=== PATIENT | male | born 1955 | race Two or more races ===

== ENCOUNTER 2021-02-20 08:58 | Inpatient (IN) | payer MEDICARE, MEDICAID ==
[~2021-02-20] VITALS: Ht 172.7 cm; Wt 58.1 kg
[2021-02-20] VITALS (28 sets, daily range): BP systolic 78–146; BP diastolic 46–117
[~2021-02-20 08:58] MED LIST: CEPH500T MT; ETOMIDATE 2MG/ML 10ML VIAL IV ONE; MIDO5TAB4 MT; SUCCINYLCHOLINE CHLORIDE 200MG/10ML IV ONE
[2021-02-20] MEDS ORDERED: SODIUM CHLORIDE 0.9% 1,000 ML IV ONE (09:30)
[2021-02-20 09:41] LABS: HEMATOCRIT. 31.5 % (42.0-52.0); HEMOGLOBIN. 11.1 g/dL (14.0-18.0); MEAN CORPUSCULAR HEMOGLOBIN 37.9 pg (28.0-32.0); MEAN CORPUSCULAR VOLUME 107.1 fL (80.0-94.0); MEAN PLATELET VOLUME 7.8 fl (7.4-10.4); PLATELET 206 x1000/uL (130-400); RED BLOOD CELL COUNT 2.95 mill/uL (4.7-6.1); RED CELL DISTRIBUTION WIDTH 15.3 % (11.6-14.6)
[2021-02-20 09:50] LABS: PROTHROMBIN TIME 11.2 sec (9.6-11.0)
[2021-02-20 09:50] LABS: BG BASE EXCESS -27.9 mmol/L (-2.0-2.0); BG CARBOXYHEMOGLOBIN 0.3 % (0.5-1.5); BG DEOXYHEMOGLOBIN 1.6 % (0.0-5.0); BG FRACTION INSPIRED OXYGEN 28; BG HCO3 ACT 2.1 mmol/L (22.0-26.0); BG METHEMOGLOBIN 0.3 % (0.0-1.5); BG OXYGEN SATURATION 98.4 % (92.0-98.5); BG OXYHEMOGLOBIN 97.8 % (94.0-97.0); BG PCO2 9.3 mmHg (35.0-45.0); BG PH 6.967 (7.350-7.450); BG PO2 149.1 mmHg (75.0-100.0); BG SAMPLE SITE RIGHT RADIAL; BG TOTAL HEMOGLOBIN 11.9 g/dL (12.0-18.0); BG VENT MODE NASAL CANNULA
[2021-02-20 09:51] LABS: CHLORIDE 117 mEq/L (98-107)
[2021-02-20 09:59] LABS: CREATINE KINASE 239 IU/L (39-308)
[2021-02-20] MEDS ORDERED: SODIUM CHLORIDE 0.9% 1000ML BAG (SEPSIS BOLUS) IV ONE (10:00)
[2021-02-20] MEDS ORDERED: PIPERACILLIN/TAZ 3.375G PREMIX 50 ML IV ONE (10:00)
[2021-02-20] MEDS ORDERED: VANCOMYCIN 1 G PREMIX 200 ML IV ONE (10:00)
[2021-02-20] MEDS ORDERED: SODIUM BICARBONATE 8.4% 1 MEQ/ML 50ML SYR IV ONE ×2 (10:00→11:15)
[2021-02-20] MEDS ORDERED: KCL 20MEQ/100ML PREMIX 100 ML IV ONE (10:15)
[2021-02-20 10:25] LABS: PLATELET ESTIMATE NORMAL
[2021-02-20 11:24] LABS: PHOSPHORUS 7.3 mg/dL (2.5-4.9)
[2021-02-20 11:29] LABS: BETA HYDROXYBUTYRATE 3.5 mMol/L (0.0-0.3)
[2021-02-20 11:58] LABS: CLARITY URINE TURBID (CLEAR); COLOR URINE DARK YELLOW (YELLOW); KETONES URINE TRACE (NEGATIVE); LEUKOCYTE ESTERASE URINE 3+ (NEGATIVE); NITRITE URINE NEGATIVE (NEGATIVE); OCCULT BLOOD URINE 3+ (NEGATIVE); PH URINE 7.5 (4.5-8.0); PROTEIN URINE 3+ (NEGATIVE); SPECIFIC GRAVITY URINE 1.016 (1.005-1.030)
[2021-02-20] MEDS ORDERED: IPRATROPIUM/ALBUTEROL 0.5-3(2.5)MG/3ML NEB HHN PRN (12:00)
[2021-02-20] MEDS ORDERED: PIPERACILLIN/TAZOBACTAM 3.375 G in DEXTROSE 5% WATER 50 ML IV SCH ×2 (12:00→14:00)
[2021-02-20] MEDS ORDERED: DEXTROSE 5% WATER 1,000 ML IV SCH (12:00)
[2021-02-20] MEDS: SODIUM BICARBONATE 150 MEQ in SODIUM CHLORIDE 0.45% 1,000 ML IV SCH (12:16)
[2021-02-20] MEDS ORDERED: NOREPINEPHRINE 32 MG in DEXT 5% WATER 218 ML IV PRN (12:30)
[2021-02-20] MEDS: PROPOFOL 10MG/ML 100ML 100 ML IV PRN (12:52)
[2021-02-20] MEDS ORDERED: SODIUM BICARBONATE 150 MEQ in DEXTROSE 5% WATER 1,000 ML IV SCH (13:00)
[2021-02-20 13:40] LABS: BG CARBOXYHEMOGLOBIN 0.1 % (0.5-1.5); BG FRACTION INSPIRED OXYGEN 100; BG HCO3 ACT 4.4 mmol/L (22.0-26.0); BG METHEMOGLOBIN 0.1 % (0.0-1.5); BG OXYHEMOGLOBIN 98.8 % (94.0-97.0); BG PCO2 17.7 mmHg (35.0-45.0); BG PH 7.011 (7.350-7.450); BG SAMPLE SITE LEFT BRACHIAL; BG TOTAL HEMOGLOBIN 10.9 g/dL (12.0-18.0); BG VENT MODE VENT - AC
[2021-02-20] MEDS ORDERED: POTASSIUM CHLORIDE INJ 40 MEQ in DEXT 5% WATER 250 ML IV NR ×3 (14:00→22:00)
[2021-02-20] MEDS ORDERED: SODIUM BICARBONATE 8.4% 1 MEQ/ML 50ML SYR IV NR (15:00)
[2021-02-20] MEDS ORDERED: POTASSIUM CHLORIDE 20MEQ TABLET SR PO NR (16:00)
[2021-02-20] MEDS ORDERED: POTASSIUM CHLORIDE 20MEQ TABLET SR PO ONE (16:00)
[2021-02-20] MEDS ORDERED: POTASSIUM CHLORIDE INJ 40 MEQ in DEXT 5% WATER 250 ML IV ONE (16:00)
[2021-02-20] MEDS ORDERED: NOREPINEPHRINE 8MG/250ML PMX 250 ML IV PRN (20:00)
[2021-02-20] MEDS: IPRATROPIUM/ALBUTEROL 0.5-3(2.5)MG/3ML NEB HHN SCH (20:12)
[2021-02-20] MEDS: NOREPINEPHRINE 8 MG in DEXTROSE 5% WATER 250 ML IV PRN (21:35)
[2021-02-20] MEDS: POTASSIUM CHLORIDE INJ 40 MEQ in DEXTROSE 5% WATER 1,000 ML IV SCH (21:54)
[2021-02-20] MEDS: PIPERACILLIN/TAZOBACTAM 3.375 G in DEXTROSE 5% WATER 50 ML IV SCH (22:06)
[2021-02-21] VITALS (102 sets, daily range): BP systolic 54–146; BP diastolic 29–95
[2021-02-21] MEDS: PROPOFOL 10MG/ML 100ML 100 ML IV PRN ×2 (01:22→12:15)
[2021-02-21] MEDS: IPRATROPIUM/ALBUTEROL 0.5-3(2.5)MG/3ML NEB HHN SCH ×4 (02:09→19:48)
[2021-02-21] MEDS: KCL 20MEQ/100ML PREMIX 100 ML IV NR ×2 (02:13→04:54)
[2021-02-21] MEDS ORDERED: POTASSIUM CHLORIDE 20MEQ/PACKET PO NR (02:30)
[2021-02-21] MEDS: NOREPINEPHRINE 8 MG in DEXTROSE 5% WATER 250 ML IV PRN ×3 (03:53→12:05)
[2021-02-21] MEDS: SODIUM BICARBONATE 150 MEQ in SODIUM CHLORIDE 0.45% 1,000 ML IV SCH (04:02)
[2021-02-21 07:53] LABS: BG BASE EXCESS -8.7 mmol/L (-2.0-2.0); BG CARBOXYHEMOGLOBIN 0.1 % (0.5-1.5); BG DEOXYHEMOGLOBIN 1.4 % (0.0-5.0); BG HCO3 ACT 13.5 mmol/L (22.0-26.0); BG METHEMOGLOBIN 0.3 % (0.0-1.5); BG OXYGEN SATURATION 98.6 % (92.0-98.5); BG OXYHEMOGLOBIN 98.2 % (94.0-97.0); BG PCO2 19.8 mmHg (35.0-45.0); BG PH 7.453 (7.350-7.450); BG PO2 228.7 mmHg (75.0-100.0); BG SAMPLE SITE RIGHT RADIAL; BG TOTAL HEMOGLOBIN 9.9 g/dL (12.0-18.0); BG VENT MODE VENT - AC
[2021-02-21 08:06] LABS: HEMATOCRIT. 27.4 % (42.0-52.0); HEMOGLOBIN. 9.6 g/dL (14.0-18.0); MEAN CORPUSCULAR HEMOGLOBIN 36.8 pg (28.0-32.0); MEAN CORPUSCULAR VOLUME 104.8 fL (80.0-94.0); MEAN PLATELET VOLUME 8.9 fl (7.4-10.4); PLATELET 151 x1000/uL (130-400); RED BLOOD CELL COUNT 2.62 mill/uL (4.7-6.1); RED CELL DISTRIBUTION WIDTH 15.2 % (11.6-14.6)
[2021-02-21] MEDS: POTASSIUM CHLORIDE 20MEQ/PACKET PO SCH (08:54)
[2021-02-21] MEDS: PIPERACILLIN/TAZOBACTAM 3.375 G in DEXTROSE 5% WATER 50 ML IV SCH ×2 (08:54→20:44)
[2021-02-21] MEDS: PANTOPRAZOLE SODIUM 40 MG/VIAL IV SCH (08:54)
[2021-02-21] MEDS: CITRIC ACID/SODIUM CITRATE SOLN 30ML UDC PO SCH ×3 (08:54→17:55)
[2021-02-21] MEDS: POTASSIUM CHLORIDE INJ 40 MEQ in DEXT 5% WATER 250 ML IV NR ×2 (08:54→14:00)
[2021-02-21 11:08] LABS: PLATELET ESTIMATE NORMAL
[2021-02-21] MEDS: MIDODRINE HCL 5MG TABLET PO SCH ×3 (11:10→17:55)
[2021-02-21] MEDS: NOREPINEPHRINE 32 MG in DEXT 5% WATER 218 ML IV PRN (17:53)
[2021-02-21] MEDS ORDERED: PROPOFOL 10MG/ML 100ML 100 ML IV PRN (18:15)
[2021-02-21] MEDS: POTASSIUM CHLORIDE INJ 40 MEQ in DEXTROSE 5% WATER 1,000 ML IV SCH (20:15)
[2021-02-21] MEDS: DOPAMINE 400MG/250ML PREMIX 250 ML IV PRN (20:55)
[2021-02-21] MEDS ORDERED: PHENYLEPHRINE 50 MG in DEXT 5% WATER 245 ML IV PRN (21:45)
[2021-02-21] MEDS ORDERED: POTASSIUM CHLORIDE INJ 40 MEQ in DEXT 5% WATER 250 ML IV NR (23:00)
[2021-02-22] VITALS (97 sets, daily range): BP systolic 70–160; BP diastolic 40–121
[2021-02-22] MEDS: IPRATROPIUM/ALBUTEROL 0.5-3(2.5)MG/3ML NEB HHN SCH ×4 (01:39→20:10)
[2021-02-22] MEDS: NOREPINEPHRINE 32 MG in DEXT 5% WATER 218 ML IV PRN ×2 (03:51→18:54)
[2021-02-22 05:51] LABS: BASOPHILS % 0.2 % (0.0-2.0); EOSINOPHILS % 0.1 % (0.0-5.0); HEMATOCRIT. 25.9 % (42.0-52.0); LYMPHOCYTES % 7.8 % (20.0-50.0); MEAN CORPUSCULAR HEMOGLOBIN 36.8 pg (28.0-32.0); MEAN CORPUSCULAR VOLUME 105.5 fL (80.0-94.0); MEAN PLATELET VOLUME 9.4 fl (7.4-10.4); MONOCYTES % 6.8 % (2.0-8.0); NEUTROPHILS % 85.1 % (40.0-76.0); PLATELET 124 x1000/uL (130-400); RED BLOOD CELL COUNT 2.45 mill/uL (4.7-6.1); RED CELL DISTRIBUTION WIDTH 15.2 % (11.6-14.6)
[2021-02-22 06:08] LABS: PHOSPHORUS 1.6 mg/dL (2.5-4.9)
[2021-02-22] MEDS: POTASSIUM CHLORIDE 20MEQ/PACKET PO SCH (08:39)
[2021-02-22] MEDS: CITRIC ACID/SODIUM CITRATE SOLN 30ML UDC PO SCH ×3 (08:39→17:10)
[2021-02-22] MEDS: SODIUM BICARBONATE 100 MEQ in SODIUM CHLORIDE 0.45% 1,000 ML IV SCH (08:40)
[2021-02-22] MEDS: PANTOPRAZOLE SODIUM 40 MG/VIAL IV SCH (08:40)
[2021-02-22] MEDS: MIDODRINE HCL 5MG TABLET PO SCH ×3 (08:40→17:10)
[2021-02-22] MEDS ORDERED: SODIUM PHOS,M-BASIC-D-BASIC 15 MM in DEXT 5% WATER 245 ML IV SCH (09:00)
[2021-02-22 09:05] LABS: BG CARBOXYHEMOGLOBIN 0.3 % (0.5-1.5); BG DEOXYHEMOGLOBIN 1.1 % (0.0-5.0); BG FRACTION INSPIRED OXYGEN 35; BG HCO3 ACT 11.3 mmol/L (22.0-26.0); BG METHEMOGLOBIN 0.4 % (0.0-1.5); BG OXYGEN SATURATION 98.9 % (92.0-98.5); BG OXYHEMOGLOBIN 98.2 % (94.0-97.0); BG PCO2 21.5 mmHg (35.0-45.0); BG PH 7.338 (7.350-7.450); BG PO2 208.3 mmHg (75.0-100.0); BG SAMPLE SITE RIGHT BRACHIAL; BG TOTAL HEMOGLOBIN 8.7 g/dL (12.0-18.0); BG TOTAL RESPIRATORY RATE 27 b/min; BG VENT MODE VENT - AC
[2021-02-22] MEDS: PIPERACILLIN/TAZOBACTAM 3.375 G in DEXTROSE 5% WATER 50 ML IV SCH ×2 (09:36→20:12)
[2021-02-22] MEDS: THIAMINE HCL 100MG TABLET PO SCH (09:39)
[2021-02-22] MEDS: FOLIC ACID 1MG TABLET PO SCH (09:39)
[2021-02-22] MEDS: FOLIC ACID/VITAMIN B COMP W-C TABLET PO SCH (09:39)
[2021-02-22] MEDS ORDERED: DEXTROSE 50% WATER 50ML SYRINGE IV PRN ×2 (11:15)
[2021-02-22] MEDS: BLOOD SUGAR DIAGNOSTIC STRIP TEST SCH ×3 (12:07→20:30)
[2021-02-22] MEDS: INSULIN LISPRO 100 UNITS/ML SUBCUT SCH ×3 (12:14→23:44)
[2021-02-22] MEDS: LACTOBACILLUS GG CAPSULE PO SCH (13:14)
[2021-02-22 16:58] LABS: *AMPHETAMINES SCREEN URINE NEGATIVE (NEGATIVE); *BARBITURATES SCREEN URINE NEGATIVE (NEGATIVE); *BENZODIAZEPINES SCREEN URINE NEGATIVE (NEGATIVE); *COCAINE SCREEN URINE NEGATIVE (NEGATIVE)
[2021-02-22 16:59] LABS: CANNABINOID URINE SCREEN NEGATIVE (NEGATIVE); METHADONE URINE SCREEN NEGATIVE (NEGATIVE); OPIATES URINE SCREEN NEGATIVE (NEGATIVE); PHENCYCLIDINE URINE SCREEN NEGATIVE (NEGATIVE)
[2021-02-22] MEDS ORDERED: PROPOFOL 10MG/ML 100ML 100 ML IV PRN (18:16)
[2021-02-23] VITALS (97 sets, daily range): BP systolic 76–132; BP diastolic 50–99
[2021-02-23] MEDS: IPRATROPIUM/ALBUTEROL 0.5-3(2.5)MG/3ML NEB HHN SCH ×4 (01:34→19:45)
[2021-02-23] MEDS: SODIUM BICARBONATE 100 MEQ in SODIUM CHLORIDE 0.45% 1,000 ML IV SCH ×2 (03:55→21:51)
[2021-02-23] MEDS: INSULIN LISPRO 100 UNITS/ML SUBCUT SCH ×4 (06:00→23:36)
[2021-02-23 06:02] LABS: BASOPHILS % 0.2 % (0.0-2.0); EOSINOPHILS % 0.3 % (0.0-5.0); HEMATOCRIT. 22.7 % (42.0-52.0); HEMOGLOBIN. 8.2 g/dL (14.0-18.0); INR 1.2; LYMPHOCYTES % 14.6 % (20.0-50.0); MEAN CORPUSCULAR HEMOGLOBIN 37.3 pg (28.0-32.0); MEAN CORPUSCULAR VOLUME 103.9 fL (80.0-94.0); MONOCYTES % 6.3 % (2.0-8.0); NEUTROPHILS % 78.6 % (40.0-76.0); PLATELET 102 x1000/uL (130-400); PROTHROMBIN TIME 12.4 sec (9.6-11.0); RED BLOOD CELL COUNT 2.19 mill/uL (4.7-6.1); RED CELL DISTRIBUTION WIDTH 15.4 % (11.6-14.6)
[2021-02-23] MEDS: BLOOD SUGAR DIAGNOSTIC STRIP TEST SCH ×5 (06:07→23:36)
[2021-02-23] MEDS: NOREPINEPHRINE 32 MG in DEXT 5% WATER 218 ML IV PRN ×2 (06:14→23:04)
[2021-02-23 06:22] LABS: FERRITIN 1386 ng/mL (22-322)
[2021-02-23 06:23] LABS: FOLIC ACID (FOLATE) SERUM >20 ng/mL ng/mL (>5.38)
[2021-02-23 06:34] LABS: VITAMIN B12 SERUM 1662 pg/mL (211-911)
[2021-02-23] MEDS: LACTOBACILLUS GG CAPSULE PO SCH (08:22)
[2021-02-23] MEDS: MIDODRINE HCL 5MG TABLET PO SCH ×3 (08:22→17:06)
[2021-02-23] MEDS: FOLIC ACID 1MG TABLET PO SCH (08:22)
[2021-02-23] MEDS: PANTOPRAZOLE SODIUM 40 MG/VIAL IV SCH (08:22)
[2021-02-23] MEDS: PIPERACILLIN/TAZOBACTAM 3.375 G in DEXTROSE 5% WATER 50 ML IV SCH ×2 (08:22→20:40)
[2021-02-23] MEDS: THIAMINE HCL 100MG TABLET PO SCH (08:22)
[2021-02-23] MEDS: POTASSIUM CHLORIDE 20MEQ/PACKET PO SCH (08:22)
[2021-02-23] MEDS: CITRIC ACID/SODIUM CITRATE SOLN 30ML UDC PO SCH ×3 (08:22→17:06)
[2021-02-23] MEDS: FOLIC ACID/VITAMIN B COMP W-C TABLET PO SCH (08:23)
[2021-02-23 09:14] LABS: BG BASE EXCESS -5.8 mmol/L (-2.0-2.0); BG CARBOXYHEMOGLOBIN 0.3 % (0.5-1.5); BG DEOXYHEMOGLOBIN 1.3 % (0.0-5.0); BG FRACTION INSPIRED OXYGEN 35; BG HCO3 ACT 16.9 mmol/L (22.0-26.0); BG METHEMOGLOBIN 0.6 % (0.0-1.5); BG OXYGEN SATURATION 98.7 % (92.0-98.5); BG OXYHEMOGLOBIN 97.8 % (94.0-97.0); BG PCO2 23.5 mmHg (35.0-45.0); BG PH 7.474 (7.350-7.450); BG PO2 183.5 mmHg (75.0-100.0); BG TOTAL RESPIRATORY RATE 25 b/min; BG VENT MODE VENT - AC
[2021-02-23] MEDS: PROPOFOL 10MG/ML 100ML 100 ML IV PRN (21:41)
[2021-02-24] VITALS (93 sets, daily range): BP systolic 89–144; BP diastolic 43–100
[2021-02-24] MEDS: IPRATROPIUM/ALBUTEROL 0.5-3(2.5)MG/3ML NEB HHN SCH ×4 (00:32→21:02)
[2021-02-24 05:26] LABS: BASOPHILS % 0.2 % (0.0-2.0); EOSINOPHILS % 1.3 % (0.0-5.0); HEMATOCRIT. 23.5 % (42.0-52.0); HEMOGLOBIN. 8.6 g/dL (14.0-18.0); LYMPHOCYTES % 18.4 % (20.0-50.0); MEAN CORPUSCULAR HEMOGLOBIN 38.4 pg (28.0-32.0); MEAN CORPUSCULAR VOLUME 105.3 fL (80.0-94.0); MEAN PLATELET VOLUME 10.6 fl (7.4-10.4); MONOCYTES % 4.2 % (2.0-8.0); NEUTROPHILS % 75.9 % (40.0-76.0); PLATELET 98 x1000/uL (130-400); RED BLOOD CELL COUNT 2.23 mill/uL (4.7-6.1); RED CELL DISTRIBUTION WIDTH 15.3 % (11.6-14.6)
[2021-02-24] MEDS: BLOOD SUGAR DIAGNOSTIC STRIP TEST SCH ×4 (05:52→23:24)
[2021-02-24] MEDS: INSULIN LISPRO 100 UNITS/ML SUBCUT SCH ×4 (05:55→23:25)
[2021-02-24] MEDS: PROPOFOL 10MG/ML 100ML 100 ML IV PRN (06:49)
[2021-02-24] MEDS: THIAMINE HCL 100MG TABLET PO SCH (08:21)
[2021-02-24] MEDS: PIPERACILLIN/TAZOBACTAM 3.375 G in DEXTROSE 5% WATER 50 ML IV SCH ×2 (08:21→20:43)
[2021-02-24] MEDS: FOLIC ACID 1MG TABLET PO SCH (08:21)
[2021-02-24] MEDS: PANTOPRAZOLE SODIUM 40 MG/VIAL IV SCH (08:21)
[2021-02-24] MEDS: CITRIC ACID/SODIUM CITRATE SOLN 30ML UDC PO SCH ×3 (08:21→17:33)
[2021-02-24] MEDS: FOLIC ACID/VITAMIN B COMP W-C TABLET PO SCH (08:21)
[2021-02-24] MEDS: LACTOBACILLUS GG CAPSULE PO SCH (08:21)
[2021-02-24] MEDS: MIDODRINE HCL 5MG TABLET PO SCH ×3 (08:21→17:32)
[2021-02-24 09:41] LABS: BG BASE EXCESS 0.8 mmol/L (-2.0-2.0); BG CARBOXYHEMOGLOBIN 0.2 % (0.5-1.5); BG DEOXYHEMOGLOBIN 1.4 % (0.0-5.0); BG FRACTION INSPIRED OXYGEN 35; BG HCO3 ACT 23.5 mmol/L (22.0-26.0); BG METHEMOGLOBIN 0.3 % (0.0-1.5); BG OXYGEN SATURATION 98.6 % (92.0-98.5); BG OXYHEMOGLOBIN 98.1 % (94.0-97.0); BG PCO2 29.9 mmHg (35.0-45.0); BG PH 7.513 (7.350-7.450); BG PO2 179.1 mmHg (75.0-100.0); BG SAMPLE SITE RIGHT RADIAL; BG TOTAL HEMOGLOBIN 8.6 g/dL (12.0-18.0); BG TOTAL RESPIRATORY RATE 18 b/min; BG VENT MODE VENT - AC
[2021-02-24] MEDS: POTASSIUM CHLORIDE 20MEQ/PACKET PO SCH ×2 (10:08→17:33)
[2021-02-24] MEDS: LINEZOLID 600 MG PREMIX 300 ML IV SCH ×2 (10:34→22:36)
[2021-02-24] MEDS: SODIUM CHLORIDE 0.45% 1,000 ML IV SCH (10:35)
[2021-02-24] MEDS: NOREPINEPHRINE 32 MG in DEXT 5% WATER 218 ML IV PRN (23:51)
[2021-02-25] VITALS (95 sets, daily range): BP systolic 83–133; BP diastolic 32–108
[2021-02-25] MEDS: SODIUM CHLORIDE 0.45% 1,000 ML IV SCH (01:00)
[2021-02-25] MEDS: IPRATROPIUM/ALBUTEROL 0.5-3(2.5)MG/3ML NEB HHN SCH ×4 (04:15→19:51)
[2021-02-25] MEDS: PROPOFOL 10MG/ML 100ML 100 ML IV PRN ×2 (04:33→23:50)
[2021-02-25] MEDS: INSULIN LISPRO 100 UNITS/ML SUBCUT SCH ×4 (06:00→23:48)
[2021-02-25 06:06] LABS: HEMATOCRIT. 25.7 % (42.0-52.0); HEMOGLOBIN. 8.9 g/dL (14.0-18.0); MEAN CORPUSCULAR VOLUME 107.2 fL (80.0-94.0); MEAN PLATELET VOLUME 10.8 fl (7.4-10.4); PLATELET 103 x1000/uL (130-400); RED BLOOD CELL COUNT 2.39 mill/uL (4.7-6.1); RED CELL DISTRIBUTION WIDTH 15.8 % (11.6-14.6)
[2021-02-25 06:18] LABS: PHOSPHORUS 3.1 mg/dL (2.5-4.9)
[2021-02-25] MEDS: BLOOD SUGAR DIAGNOSTIC STRIP TEST SCH ×4 (06:26→23:37)
[2021-02-25] MEDS ORDERED: DOBUTAMINE 250MG PREMIX 250 ML IV SCH (08:30)
[2021-02-25] MEDS: MIDODRINE HCL 5MG TABLET PO SCH ×3 (08:41→18:18)
[2021-02-25] MEDS: FOLIC ACID/VITAMIN B COMP W-C TABLET PO SCH (08:41)
[2021-02-25] MEDS: THIAMINE HCL 100MG TABLET PO SCH (08:41)
[2021-02-25] MEDS: CITRIC ACID/SODIUM CITRATE SOLN 30ML UDC PO SCH ×3 (08:41→18:18)
[2021-02-25] MEDS: PANTOPRAZOLE SODIUM 40 MG/VIAL IV SCH (08:41)
[2021-02-25] MEDS: FOLIC ACID 1MG TABLET PO SCH (08:42)
[2021-02-25] MEDS: LACTOBACILLUS GG CAPSULE PO SCH (08:43)
[2021-02-25] MEDS: PIPERACILLIN/TAZOBACTAM 3.375 G in DEXTROSE 5% WATER 50 ML IV SCH ×2 (08:44→20:54)
[2021-02-25 10:01] LABS: BG BASE EXCESS -3.4 mmol/L (-2.0-2.0); BG CARBOXYHEMOGLOBIN 0.3 % (0.5-1.5); BG DEOXYHEMOGLOBIN 3.9 % (0.0-5.0); BG FRACTION INSPIRED OXYGEN 35; BG HCO3 ACT 19.1 mmol/L (22.0-26.0); BG METHEMOGLOBIN 0.3 % (0.0-1.5); BG OXYGEN SATURATION 96.1 % (92.0-98.5); BG OXYHEMOGLOBIN 95.5 % (94.0-97.0); BG PCO2 26.3 mmHg (35.0-45.0); BG PO2 85.3 mmHg (75.0-100.0); BG SAMPLE SITE RIGHT RADIAL; BG TOTAL HEMOGLOBIN 9.7 g/dL (12.0-18.0); BG VENT MODE VENT - AC
[2021-02-25 10:36] LABS: NUCLEATED RED BLOOD CELLS 39 /100 WBC
[2021-02-25 10:37] LABS: PLATELET ESTIMATE DECREASED
[2021-02-25] MEDS: LINEZOLID 600 MG PREMIX 300 ML IV SCH (10:55)
[2021-02-25] MEDS ORDERED: LINEZOLID 600 MG PREMIX 300 ML IV SCH (13:00)
[2021-02-26] VITALS (91 sets, daily range): BP systolic 82–125; BP diastolic 41–84
[2021-02-26] MEDS: LINEZOLID 600 MG PREMIX 300 ML IV SCH ×2 (00:34→12:26)
[2021-02-26] MEDS: IPRATROPIUM/ALBUTEROL 0.5-3(2.5)MG/3ML NEB HHN SCH ×4 (03:38→19:48)
[2021-02-26 05:07] LABS: BASOPHILS % 0.1 % (0.0-2.0); EOSINOPHILS % 0.3 % (0.0-5.0); HEMATOCRIT. 24.1 % (42.0-52.0); LYMPHOCYTES % 10.6 % (20.0-50.0); MEAN CORPUSCULAR HEMOGLOBIN 37.1 pg (28.0-32.0); MEAN CORPUSCULAR VOLUME 112.1 fL (80.0-94.0); MEAN PLATELET VOLUME 10.5 fl (7.4-10.4); MONOCYTES % 4.6 % (2.0-8.0); NEUTROPHILS % 84.4 % (40.0-76.0); PLATELET 68 x1000/uL (130-400); RED BLOOD CELL COUNT 2.15 mill/uL (4.7-6.1); RED CELL DISTRIBUTION WIDTH 16.3 % (11.6-14.6)
[2021-02-26 05:42] LABS: PHOSPHORUS 3.9 mg/dL (2.5-4.9)
[2021-02-26] MEDS: NOREPINEPHRINE 32 MG in DEXT 5% WATER 218 ML IV PRN (06:16)
[2021-02-26] MEDS: BLOOD SUGAR DIAGNOSTIC STRIP TEST SCH ×3 (06:30→18:02)
[2021-02-26] MEDS: INSULIN LISPRO 100 UNITS/ML SUBCUT SCH ×3 (07:09→17:57)
[2021-02-26 09:01] LABS: BG BASE EXCESS 4.5 mmol/L (-2.0-2.0); BG CARBOXYHEMOGLOBIN 0.3 % (0.5-1.5); BG DEOXYHEMOGLOBIN 1.5 % (0.0-5.0); BG FRACTION INSPIRED OXYGEN 35; BG HCO3 ACT 28.3 mmol/L (22.0-26.0); BG METHEMOGLOBIN 0.4 % (0.0-1.5); BG OXYGEN SATURATION 98.5 % (92.0-98.5); BG OXYHEMOGLOBIN 97.8 % (94.0-97.0); BG PCO2 39.2 mmHg (35.0-45.0); BG PH 7.477 (7.350-7.450); BG PO2 150.9 mmHg (75.0-100.0); BG SAMPLE SITE LEFT RADIAL; BG TOTAL HEMOGLOBIN 9.3 g/dL (12.0-18.0); BG VENT MODE VENT - AC
[2021-02-26] MEDS: THIAMINE HCL 100MG TABLET PO SCH (09:26)
[2021-02-26] MEDS: DOBUTAMINE 250MG PREMIX 250 ML IV SCH (09:26)
[2021-02-26] MEDS: FOLIC ACID 1MG TABLET PO SCH (09:26)
[2021-02-26] MEDS: PANTOPRAZOLE SODIUM 40 MG/VIAL IV SCH (09:26)
[2021-02-26] MEDS: MIDODRINE HCL 5MG TABLET PO SCH ×3 (09:26→18:02)
[2021-02-26] MEDS: FOLIC ACID/VITAMIN B COMP W-C TABLET PO SCH (09:26)
[2021-02-26] MEDS: LACTOBACILLUS GG CAPSULE PO SCH (09:27)
[2021-02-26] MEDS ORDERED: MAGNESIUM 2 G PREMIX 50 ML IV NR (10:30)
[2021-02-26] MEDS: PROPOFOL 10MG/ML 100ML 100 ML IV PRN ×2 (12:53→20:32)
[2021-02-26] MEDS: MEROPENEM 1,000 MG in SODIUM CHLORIDE 0.9% 100 ML IV SCH (20:21)
[2021-02-26] MEDS: DOXYCYCLINE 100 MG in DEXT 5% WATER 100 ML IV SCH (21:26)
[2021-02-27] VITALS (90 sets, daily range): BP systolic 76–137; BP diastolic 21–96
[2021-02-27] MEDS: IPRATROPIUM/ALBUTEROL 0.5-3(2.5)MG/3ML NEB HHN SCH ×5 (03:52→20:33)
[2021-02-27 05:45] LABS: BASOPHILS % 0.3 % (0.0-2.0); EOSINOPHILS % 1.4 % (0.0-5.0); HEMATOCRIT. 22.2 % (42.0-52.0); HEMOGLOBIN. 7.5 g/dL (14.0-18.0); LYMPHOCYTES % 8.3 % (20.0-50.0); MEAN CORPUSCULAR HEMOGLOBIN 37.6 pg (28.0-32.0); MEAN CORPUSCULAR VOLUME 110.4 fL (80.0-94.0); MEAN PLATELET VOLUME 11.6 fl (7.4-10.4); MONOCYTES % 3.9 % (2.0-8.0); NEUTROPHILS % 86.1 % (40.0-76.0); RED BLOOD CELL COUNT 2.01 mill/uL (4.7-6.1); RED CELL DISTRIBUTION WIDTH 16.1 % (11.6-14.6)
[2021-02-27] MEDS: INSULIN LISPRO 100 UNITS/ML SUBCUT SCH ×4 (06:00→17:33)
[2021-02-27] MEDS: BLOOD SUGAR DIAGNOSTIC STRIP TEST SCH ×4 (06:08→17:33)
[2021-02-27] MEDS: DOXYCYCLINE 100 MG in DEXT 5% WATER 100 ML IV SCH ×2 (06:14→20:01)
[2021-02-27 09:11] LABS: BG BASE EXCESS 3.4 mmol/L (-2.0-2.0); BG DEOXYHEMOGLOBIN 2.9 % (0.0-5.0); BG FRACTION INSPIRED OXYGEN 30; BG HCO3 ACT 27.5 mmol/L (22.0-26.0); BG METHEMOGLOBIN 0.4 % (0.0-1.5); BG OXYGEN SATURATION 97.1 % (92.0-98.5); BG OXYHEMOGLOBIN 96.7 % (94.0-97.0); BG PCO2 39.9 mmHg (35.0-45.0); BG PH 7.457 (7.350-7.450); BG PO2 95.7 mmHg (75.0-100.0); BG SAMPLE SITE RIGHT RADIAL; BG VENT MODE VENT - SIMV
[2021-02-27] MEDS: MEROPENEM 1,000 MG in SODIUM CHLORIDE 0.9% 100 ML IV SCH ×2 (10:15→20:45)
[2021-02-27] MEDS: FOLIC ACID 1MG TABLET PO SCH (10:15)
[2021-02-27] MEDS: PANTOPRAZOLE SODIUM 40 MG/VIAL IV SCH (10:15)
[2021-02-27] MEDS: FOLIC ACID/VITAMIN B COMP W-C TABLET PO SCH (10:15)
[2021-02-27] MEDS: MIDODRINE HCL 5MG TABLET PO SCH ×3 (10:16→17:33)
[2021-02-27] MEDS: THIAMINE HCL 100MG TABLET PO SCH (10:16)
[2021-02-27] MEDS: LACTOBACILLUS GG CAPSULE PO SCH (10:16)
[2021-02-27] MEDS: NOREPINEPHRINE 32 MG in DEXT 5% WATER 218 ML IV PRN (10:17)
[2021-02-27] MEDS: DOBUTAMINE 250MG PREMIX 250 ML IV SCH (10:23)
[2021-02-27 12:01] LABS: BG BASE EXCESS 4.4 mmol/L (-2.0-2.0); BG CARBOXYHEMOGLOBIN 0.3 % (0.5-1.5); BG DEOXYHEMOGLOBIN 1.3 % (0.0-5.0); BG FRACTION INSPIRED OXYGEN 40; BG HCO3 ACT 28.6 mmol/L (22.0-26.0); BG METHEMOGLOBIN 0.5 % (0.0-1.5); BG OXYGEN SATURATION 98.7 % (92.0-98.5); BG OXYHEMOGLOBIN 97.9 % (94.0-97.0); BG PCO2 40.8 mmHg (35.0-45.0); BG PH 7.463 (7.350-7.450); BG PO2 145.7 mmHg (75.0-100.0); BG SAMPLE SITE RIGHT RADIAL; BG TOTAL HEMOGLOBIN 7.9 g/dL (12.0-18.0); BG VENT MODE VENT - CPAP
[2021-02-27] MEDS: ACETAMINOPHEN 325MG TABLET PO PRN (12:57)
[2021-02-27] MEDS: LORAZEPAM 2MG/ML CPJ IV PRN ×2 (17:50→22:40)
[2021-02-28] VITALS (109 sets, daily range): BP systolic 69–144; BP diastolic 27–99
[2021-02-28] MEDS: BLOOD SUGAR DIAGNOSTIC STRIP TEST SCH ×5 (00:12→23:37)
[2021-02-28] MEDS: IPRATROPIUM/ALBUTEROL 0.5-3(2.5)MG/3ML NEB HHN SCH ×3 (02:09→20:37)
[2021-02-28] MEDS: INSULIN LISPRO 100 UNITS/ML SUBCUT SCH ×5 (05:51→23:37)
[2021-02-28 05:53] LABS: BASOPHILS % 0.5 % (0.0-2.0); EOSINOPHILS % 0.9 % (0.0-5.0); LYMPHOCYTES % 12.2 % (20.0-50.0); MEAN CORPUSCULAR HEMOGLOBIN 37.5 pg (28.0-32.0); MEAN CORPUSCULAR VOLUME 112.1 fL (80.0-94.0); MEAN PLATELET VOLUME 11.6 fl (7.4-10.4); MONOCYTES % 4.9 % (2.0-8.0); NEUTROPHILS % 81.5 % (40.0-76.0); RED BLOOD CELL COUNT 1.76 mill/uL (4.7-6.1); RED CELL DISTRIBUTION WIDTH 15.9 % (11.6-14.6)
[2021-02-28] MEDS: DOBUTAMINE 250MG PREMIX 250 ML IV SCH (05:55)
[2021-02-28] MEDS ORDERED: POTASSIUM CHLORIDE 20MEQ/PACKET PO SCH (06:15)
[2021-02-28] MEDS: DOXYCYCLINE 100 MG in DEXT 5% WATER 100 ML IV SCH ×2 (06:33→18:56)
[2021-02-28] MEDS: DEXTROSE 5% WATER 1,000 ML IV SCH ×2 (06:33→22:55)
[2021-02-28 06:41] LABS: HEMATOCRIT. 19.7 % (42.0-52.0); HEMOGLOBIN. 6.6 g/dL (14.0-18.0)
[2021-02-28 06:42] LABS: PLATELET 47 x1000/uL (130-400)
[2021-02-28] MEDS: THIAMINE HCL 100MG TABLET PO SCH (08:43)
[2021-02-28] MEDS: MEROPENEM 1,000 MG in SODIUM CHLORIDE 0.9% 100 ML IV SCH ×2 (08:43→19:45)
[2021-02-28] MEDS: PANTOPRAZOLE SODIUM 40 MG/VIAL IV SCH (08:44)
[2021-02-28] MEDS: FOLIC ACID/VITAMIN B COMP W-C TABLET PO SCH (08:44)
[2021-02-28] MEDS: FOLIC ACID 1MG TABLET PO SCH (08:44)
[2021-02-28] MEDS: LACTOBACILLUS GG CAPSULE PO SCH (08:44)
[2021-02-28] MEDS: MIDODRINE HCL 5MG TABLET PO SCH ×3 (08:44→18:55)
[2021-02-28] MEDS: NOREPINEPHRINE 32 MG in DEXT 5% WATER 218 ML IV PRN (12:46)
[2021-02-28] MEDS ORDERED: FLUCONAZOLE 200 MG/100ML BAG 100 ML IV SCH (22:00)
[2021-03-01] VITALS (98 sets, daily range): BP systolic 70–130; BP diastolic 18–89
[2021-03-01] MEDS: IPRATROPIUM/ALBUTEROL 0.5-3(2.5)MG/3ML NEB HHN SCH ×4 (01:05→23:40)
[2021-03-01] MEDS: INSULIN LISPRO 100 UNITS/ML SUBCUT SCH ×3 (06:00→18:00)
[2021-03-01 06:06] LABS: BASOPHILS % 0.4 % (0.0-2.0); HEMATOCRIT. 27.6 % (42.0-52.0); HEMOGLOBIN. 9.4 g/dL (14.0-18.0); LYMPHOCYTES % 17.7 % (20.0-50.0); MEAN CORPUSCULAR HEMOGLOBIN 34.2 pg (28.0-32.0); MEAN CORPUSCULAR VOLUME 99.9 fL (80.0-94.0); MEAN PLATELET VOLUME 9.9 fl (7.4-10.4); MONOCYTES % 6.7 % (2.0-8.0); NEUTROPHILS % 74.2 % (40.0-76.0); RED BLOOD CELL COUNT 2.76 mill/uL (4.7-6.1); RED CELL DISTRIBUTION WIDTH 22.1 % (11.6-14.6)
[2021-03-01 06:14] LABS: PHOSPHORUS 2.5 mg/dL (2.5-4.9)
[2021-03-01] MEDS: DOBUTAMINE 250MG PREMIX 250 ML IV SCH (06:59)
[2021-03-01] MEDS: BLOOD SUGAR DIAGNOSTIC STRIP TEST SCH ×3 (06:59→18:05)
[2021-03-01] MEDS: DOXYCYCLINE 100 MG in DEXT 5% WATER 100 ML IV SCH ×2 (06:59→18:06)
[2021-03-01] MEDS: LACTOBACILLUS GG CAPSULE PO SCH (09:01)
[2021-03-01] MEDS: MEROPENEM 1,000 MG in SODIUM CHLORIDE 0.9% 100 ML IV SCH ×2 (09:01→20:25)
[2021-03-01] MEDS: FOLIC ACID/VITAMIN B COMP W-C TABLET PO SCH (09:01)
[2021-03-01] MEDS: MIDODRINE HCL 5MG TABLET PO SCH ×3 (09:01→18:08)
[2021-03-01] MEDS: PANTOPRAZOLE SODIUM 40 MG/VIAL IV SCH (09:01)
[2021-03-01] MEDS: THIAMINE HCL 100MG TABLET PO SCH (09:01)
[2021-03-01] MEDS: FOLIC ACID 1MG TABLET PO SCH (09:01)
[2021-03-01] MEDS: POTASSIUM CHLORIDE 20MEQ/PACKET PO SCH (09:21)
[2021-03-01 13:19] LABS: PLATELET 57 x1000/uL (130-400)
[2021-03-01] MEDS: NOREPINEPHRINE 32 MG in DEXT 5% WATER 218 ML IV PRN (19:30)
[2021-03-02] VITALS (96 sets, daily range): BP systolic 83–185; BP diastolic 14–91
[2021-03-02] MEDS: INSULIN LISPRO 100 UNITS/ML SUBCUT SCH ×5 (06:00→23:46)
[2021-03-02 06:18] LABS: BASOPHILS % 0.3 % (0.0-2.0); EOSINOPHILS % 2.2 % (0.0-5.0); HEMATOCRIT. 29.7 % (42.0-52.0); HEMOGLOBIN. 10.2 g/dL (14.0-18.0); MEAN CORPUSCULAR HEMOGLOBIN 34.3 pg (28.0-32.0); MEAN CORPUSCULAR VOLUME 100.1 fL (80.0-94.0); MEAN PLATELET VOLUME 9.8 fl (7.4-10.4); MONOCYTES % 7.8 % (2.0-8.0); NEUTROPHILS % 71.7 % (40.0-76.0); PLATELET 52 x1000/uL (130-400); RED BLOOD CELL COUNT 2.97 mill/uL (4.7-6.1); RED CELL DISTRIBUTION WIDTH 22.5 % (11.6-14.6)
[2021-03-02 06:22] LABS: PHOSPHORUS 2.4 mg/dL (2.5-4.9)
[2021-03-02] MEDS: DOXYCYCLINE 100 MG in DEXT 5% WATER 100 ML IV SCH ×2 (06:41→18:47)
[2021-03-02] MEDS: BLOOD SUGAR DIAGNOSTIC STRIP TEST SCH ×5 (06:47→23:46)
[2021-03-02] MEDS: DOBUTAMINE 250MG PREMIX 250 ML IV SCH (06:50)
[2021-03-02] MEDS ORDERED: MIDODRINE HCL 5MG TABLET PO SCH (09:00)
[2021-03-02] MEDS ORDERED: POTASSIUM PHOS,M-BASIC-D-BASIC 10 MMOL in DEXT 5% WATER 246.6667 ML IV SCH (09:30)
[2021-03-02] MEDS: MEROPENEM 1,000 MG in SODIUM CHLORIDE 0.9% 100 ML IV SCH ×2 (09:32→19:59)
[2021-03-02] MEDS: LACTOBACILLUS GG CAPSULE PO SCH (09:42)
[2021-03-02] MEDS: FOLIC ACID/VITAMIN B COMP W-C TABLET PO SCH (09:42)
[2021-03-02] MEDS: PANTOPRAZOLE SODIUM 40 MG/VIAL IV SCH (09:42)
[2021-03-02] MEDS: THIAMINE HCL 100MG TABLET PO SCH (09:42)
[2021-03-02] MEDS: IPRATROPIUM/ALBUTEROL 0.5-3(2.5)MG/3ML NEB HHN SCH ×3 (09:43→21:07)
[2021-03-02] MEDS: POTASSIUM CHLORIDE 20MEQ/PACKET PO SCH (09:43)
[2021-03-02] MEDS: FOLIC ACID 1MG TABLET PO SCH (09:43)
[2021-03-02] MEDS ORDERED: MAGNESIUM 1 G PREMIX 100 ML IV SCH (10:00)
[2021-03-02] MEDS: MIDODRINE HCL 5MG TABLET PO SCH ×2 (12:27→17:58)
[2021-03-02 13:05] LABS: PLATELET 45 x1000/uL (130-400)
[2021-03-02] MEDS: NOREPINEPHRINE 32 MG in DEXT 5% WATER 218 ML IV PRN (18:47)
[2021-03-02 19:10] LABS: TOTAL IRON BINDING CAPACITY 195 ug/dL (250-450)
[2021-03-02 19:26] LABS: CARCINO EMBRYONIC ANTIGEN 2.1 ng/ml
[2021-03-02 19:29] LABS: FOLIC ACID (FOLATE) SERUM 19.3 ng/mL (>5.38)
[2021-03-02 22:08] LABS: INR 1.1; PROTHROMBIN TIME 11.8 sec (9.6-11.0)
[2021-03-03] VITALS (96 sets, daily range): BP systolic 80–133; BP diastolic 25–96
[2021-03-03] MEDS: IPRATROPIUM/ALBUTEROL 0.5-3(2.5)MG/3ML NEB HHN SCH ×4 (01:08→20:11)
[2021-03-03 05:27] LABS: BASOPHILS % 0.4 % (0.0-2.0); EOSINOPHILS % 2.2 % (0.0-5.0); HEMOGLOBIN. 10.1 g/dL (14.0-18.0); LYMPHOCYTES % 19.7 % (20.0-50.0); MEAN CORPUSCULAR HEMOGLOBIN 34.9 pg (28.0-32.0); MEAN CORPUSCULAR VOLUME 100.2 fL (80.0-94.0); MEAN PLATELET VOLUME 8.3 fl (7.4-10.4); MONOCYTES % 9.2 % (2.0-8.0); NEUTROPHILS % 68.5 % (40.0-76.0); PLATELET 55 x1000/uL (130-400); RED BLOOD CELL COUNT 2.89 mill/uL (4.7-6.1); RED CELL DISTRIBUTION WIDTH 21.8 % (11.6-14.6)
[2021-03-03 05:51] LABS: PHOSPHORUS 2.4 mg/dL (2.5-4.9)
[2021-03-03] MEDS: INSULIN LISPRO 100 UNITS/ML SUBCUT SCH ×4 (06:00→23:34)
[2021-03-03] MEDS: BLOOD SUGAR DIAGNOSTIC STRIP TEST SCH ×4 (06:00→23:34)
[2021-03-03] MEDS: DOXYCYCLINE 100 MG in DEXT 5% WATER 100 ML IV SCH ×2 (06:29→18:27)
[2021-03-03] MEDS: MEROPENEM 1,000 MG in SODIUM CHLORIDE 0.9% 100 ML IV SCH ×2 (08:13→20:31)
[2021-03-03] MEDS: PHENYLEPHRINE 100 MG in DEXT 5% WATER 240 ML IV PRN ×2 (08:15→22:41)
[2021-03-03] MEDS: MIDODRINE HCL 5MG TABLET PO SCH ×3 (08:35→18:27)
[2021-03-03] MEDS: FOLIC ACID 1MG TABLET PO SCH (08:35)
[2021-03-03] MEDS: THIAMINE HCL 100MG TABLET PO SCH (08:35)
[2021-03-03] MEDS: POTASSIUM CHLORIDE 20MEQ/PACKET PO SCH (08:35)
[2021-03-03] MEDS: FOLIC ACID/VITAMIN B COMP W-C TABLET PO SCH (08:35)
[2021-03-03] MEDS: LACTOBACILLUS GG CAPSULE PO SCH (08:36)
[2021-03-03] MEDS: PANTOPRAZOLE SODIUM 40 MG/VIAL IV SCH (08:36)
[2021-03-03] MEDS: DOBUTAMINE 250MG PREMIX 250 ML IV SCH (08:38)
[2021-03-03] MEDS ORDERED: MIDODRINE HCL 5MG TABLET PO SCH (13:00)
[2021-03-04] VITALS (94 sets, daily range): BP systolic 61–150; BP diastolic 16–97
[2021-03-04] MEDS: IPRATROPIUM/ALBUTEROL 0.5-3(2.5)MG/3ML NEB HHN SCH ×4 (00:25→19:50)
[2021-03-04] MEDS: DOBUTAMINE 250MG PREMIX 250 ML IV SCH ×2 (02:31→23:09)
[2021-03-04 05:26] LABS: BASOPHILS % 0.3 % (0.0-2.0); EOSINOPHILS % 0.8 % (0.0-5.0); HEMATOCRIT. 28.5 % (42.0-52.0); HEMOGLOBIN. 9.6 g/dL (14.0-18.0); LYMPHOCYTES % 9.4 % (20.0-50.0); MEAN CORPUSCULAR HEMOGLOBIN 34.4 pg (28.0-32.0); MEAN CORPUSCULAR VOLUME 101.7 fL (80.0-94.0); MEAN PLATELET VOLUME 8.8 fl (7.4-10.4); MONOCYTES % 8.8 % (2.0-8.0); NEUTROPHILS % 80.7 % (40.0-76.0); PLATELET 66 x1000/uL (130-400); RED CELL DISTRIBUTION WIDTH 22.4 % (11.6-14.6)
[2021-03-04] MEDS: INSULIN LISPRO 100 UNITS/ML SUBCUT SCH ×4 (06:00→23:58)
[2021-03-04] MEDS: BLOOD SUGAR DIAGNOSTIC STRIP TEST SCH ×4 (06:53→23:58)
[2021-03-04] MEDS: PHENYLEPHRINE 100 MG in DEXT 5% WATER 240 ML IV PRN ×2 (08:09→18:09)
[2021-03-04] MEDS: PANTOPRAZOLE SODIUM 40 MG/VIAL IV SCH (08:39)
[2021-03-04] MEDS: MIDODRINE HCL 5MG TABLET PO SCH ×3 (08:39→17:32)
[2021-03-04] MEDS: FOLIC ACID/VITAMIN B COMP W-C TABLET PO SCH (08:39)
[2021-03-04] MEDS: LACTOBACILLUS GG CAPSULE PO SCH (08:39)
[2021-03-04] MEDS: FOLIC ACID 1MG TABLET PO SCH (08:39)
[2021-03-04] MEDS: THIAMINE HCL 100MG TABLET PO SCH (08:39)
[2021-03-04] MEDS: DOPAMINE 400MG/250ML PREMIX 250 ML IV PRN (08:49)
[2021-03-04] MEDS ORDERED: FLUDROCORTISONE ACETATE 0.1MG TABLET PO SCH (09:00)
[2021-03-04] MEDS ORDERED: SODIUM CHLORIDE 0.45% 500 ML IV ONE (13:00)
[2021-03-04] MEDS: SODIUM CHLORIDE 0.45% 1,000 ML IV SCH (13:12)
[2021-03-05] VITALS (100 sets, daily range): BP systolic 60–153; BP diastolic 27–111
[2021-03-05] MEDS: IPRATROPIUM/ALBUTEROL 0.5-3(2.5)MG/3ML NEB HHN SCH ×4 (00:51→21:20)
[2021-03-05] MEDS: SODIUM CHLORIDE 0.45% 1,000 ML IV SCH ×2 (02:10→14:03)
[2021-03-05] MEDS: PHENYLEPHRINE 100 MG in DEXT 5% WATER 240 ML IV PRN ×2 (02:11→21:28)
[2021-03-05 05:45] LABS: BASOPHILS % 0.4 % (0.0-2.0); EOSINOPHILS % 0.7 % (0.0-5.0); HEMATOCRIT. 25.7 % (42.0-52.0); HEMOGLOBIN. 8.8 g/dL (14.0-18.0); LYMPHOCYTES % 12.3 % (20.0-50.0); MEAN CORPUSCULAR HEMOGLOBIN 34.9 pg (28.0-32.0); MEAN CORPUSCULAR VOLUME 101.9 fL (80.0-94.0); MEAN PLATELET VOLUME 8.6 fl (7.4-10.4); MONOCYTES % 8.6 % (2.0-8.0); PLATELET 86 x1000/uL (130-400); RED BLOOD CELL COUNT 2.52 mill/uL (4.7-6.1); RED CELL DISTRIBUTION WIDTH 21.6 % (11.6-14.6)
[2021-03-05] MEDS: INSULIN LISPRO 100 UNITS/ML SUBCUT SCH ×3 (06:00→18:00)
[2021-03-05] MEDS: BLOOD SUGAR DIAGNOSTIC STRIP TEST SCH ×3 (06:16→18:25)
[2021-03-05] MEDS ORDERED: FLUDROCORTISONE ACETATE 0.1MG TABLET PO SCH (09:00)
[2021-03-05] MEDS: PANTOPRAZOLE SODIUM 40 MG/VIAL IV SCH (09:38)
[2021-03-05] MEDS: FLUDROCORTISONE ACETATE 0.1MG TABLET PO SCH (09:39)
[2021-03-05] MEDS: MIDODRINE HCL 5MG TABLET PO SCH ×3 (09:39→18:04)
[2021-03-05] MEDS: LACTOBACILLUS GG CAPSULE PO SCH (09:39)
[2021-03-05] MEDS: FOLIC ACID/VITAMIN B COMP W-C TABLET PO SCH (09:39)
[2021-03-05] MEDS: FOLIC ACID 1MG TABLET PO SCH (09:40)
[2021-03-05] MEDS: THIAMINE HCL 100MG TABLET PO SCH (09:49)
[2021-03-05] MEDS: ONDANSETRON HCL 4MG/2ML INJ IV PRN (10:41)
[2021-03-05] MEDS: DOBUTAMINE 250MG PREMIX 250 ML IV SCH (14:37)
[2021-03-05] MEDS ORDERED: DIGOXIN 500MCG/2ML AMP IV NR (18:00)
[2021-03-05] MEDS ORDERED: AMIODARONE HCL 150 MG in DEXT 5% WATER 97 ML IV NR (19:30)
[2021-03-05] MEDS ORDERED: AMIODARONE HCL 900 MG in DEXT 5% WATER 482 ML IV PRN (19:30)
[2021-03-06] VITALS (97 sets, daily range): BP systolic 74–122; BP diastolic 26–87
[2021-03-06] MEDS: SODIUM CHLORIDE 0.45% 1,000 ML IV SCH (00:37)
[2021-03-06] MEDS: IPRATROPIUM/ALBUTEROL 0.5-3(2.5)MG/3ML NEB HHN SCH ×4 (02:50→21:42)
[2021-03-06 05:38] LABS: CHLORIDE 114 mEq/L (98-107)
[2021-03-06 05:50] LABS: BASOPHILS % 0.8 % (0.0-2.0); EOSINOPHILS % 1.9 % (0.0-5.0); HEMATOCRIT. 25.7 % (42.0-52.0); HEMOGLOBIN. 8.5 g/dL (14.0-18.0); LYMPHOCYTES % 16.8 % (20.0-50.0); MEAN CORPUSCULAR HEMOGLOBIN 35.1 pg (28.0-32.0); MEAN CORPUSCULAR VOLUME 106.7 fL (80.0-94.0); MEAN PLATELET VOLUME 9.2 fl (7.4-10.4); MONOCYTES % 8.9 % (2.0-8.0); NEUTROPHILS % 71.6 % (40.0-76.0); PLATELET 70 x1000/uL (130-400); RED CELL DISTRIBUTION WIDTH 22.3 % (11.6-14.6)
[2021-03-06] MEDS: INSULIN LISPRO 100 UNITS/ML SUBCUT SCH ×4 (05:52→17:33)
[2021-03-06] MEDS: BLOOD SUGAR DIAGNOSTIC STRIP TEST SCH ×4 (05:52→17:23)
[2021-03-06] MEDS: PANTOPRAZOLE SODIUM 40 MG/VIAL IV SCH (08:20)
[2021-03-06] MEDS: LACTOBACILLUS GG CAPSULE PO SCH (08:20)
[2021-03-06] MEDS: FOLIC ACID/VITAMIN B COMP W-C TABLET PO SCH (08:20)
[2021-03-06] MEDS: FOLIC ACID 1MG TABLET PO SCH (08:21)
[2021-03-06] MEDS: THIAMINE HCL 100MG TABLET PO SCH (08:21)
[2021-03-06] MEDS: MIDODRINE HCL 5MG TABLET PO SCH ×3 (08:22→17:32)
[2021-03-06] MEDS: FLUDROCORTISONE ACETATE 0.1MG TABLET PO SCH (08:22)
[2021-03-06] MEDS: DOBUTAMINE 250MG PREMIX 250 ML IV SCH (08:59)
[2021-03-06 09:45] LABS: PLATELET ESTIMATE DECREASED
[2021-03-06] MEDS: DEXT 5%/0.45% NACL 1000ML 1,000 ML IV SCH (10:11)
[2021-03-06] MEDS ORDERED: DIGOXIN 500MCG/2ML AMP IV PRN (10:45)
[2021-03-06] MEDS: PHENYLEPHRINE 100 MG in DEXT 5% WATER 240 ML IV PRN (18:22)
[2021-03-07] VITALS (90 sets, daily range): BP systolic 71–134; BP diastolic 33–81
[2021-03-07] MEDS: BLOOD SUGAR DIAGNOSTIC STRIP TEST SCH ×4 (00:06→17:08)
[2021-03-07] MEDS: DOBUTAMINE 250MG PREMIX 250 ML IV SCH ×2 (03:21→21:43)
[2021-03-07] MEDS: IPRATROPIUM/ALBUTEROL 0.5-3(2.5)MG/3ML NEB HHN SCH ×5 (04:51→21:05)
[2021-03-07 05:46] LABS: CHLORIDE 113 mEq/L (98-107)
[2021-03-07 05:48] LABS: BASOPHILS % 0.7 % (0.0-2.0); EOSINOPHILS % 1.7 % (0.0-5.0); HEMATOCRIT. 27.7 % (42.0-52.0); HEMOGLOBIN. 9.1 g/dL (14.0-18.0); LYMPHOCYTES % 21.1 % (20.0-50.0); MEAN CORPUSCULAR HEMOGLOBIN 34.1 pg (28.0-32.0); MEAN CORPUSCULAR VOLUME 103.8 fL (80.0-94.0); MEAN PLATELET VOLUME 8.5 fl (7.4-10.4); NEUTROPHILS % 66.5 % (40.0-76.0); PLATELET 166 x1000/uL (130-400); RED BLOOD CELL COUNT 2.67 mill/uL (4.7-6.1); RED CELL DISTRIBUTION WIDTH 21.5 % (11.6-14.6)
[2021-03-07] MEDS: INSULIN LISPRO 100 UNITS/ML SUBCUT SCH ×4 (06:00→17:30)
[2021-03-07] MEDS: DEXT 5%/0.45% NACL 1000ML 1,000 ML IV SCH (06:26)
[2021-03-07] MEDS ORDERED: POTASSIUM CHLORIDE INJ 40 MEQ in DEXT 5% WATER 250 ML IV SCH (09:00)
[2021-03-07] MEDS ORDERED: MAGNESIUM 2 G PREMIX 50 ML IV SCH (09:00)
[2021-03-07] MEDS: LACTOBACILLUS GG CAPSULE PO SCH (09:58)
[2021-03-07] MEDS: FOLIC ACID 1MG TABLET PO SCH (09:58)
[2021-03-07] MEDS: FLUDROCORTISONE ACETATE 0.1MG TABLET PO SCH (09:58)
[2021-03-07] MEDS: MIDODRINE HCL 5MG TABLET PO SCH ×3 (09:58→17:30)
[2021-03-07] MEDS: THIAMINE HCL 100MG TABLET PO SCH (09:58)
[2021-03-07] MEDS: FOLIC ACID/VITAMIN B COMP W-C TABLET PO SCH (09:58)
[2021-03-07] MEDS: PANTOPRAZOLE SODIUM 40 MG/VIAL IV SCH (13:35)
[2021-03-07] MEDS ORDERED: POTASSIUM CHLORIDE 20MEQ TABLET SR PO NR (18:30)
[2021-03-08] VITALS (100 sets, daily range): BP systolic 50–128; BP diastolic 22–97
[2021-03-08] MEDS: BLOOD SUGAR DIAGNOSTIC STRIP TEST SCH ×4 (00:40→17:27)
[2021-03-08] MEDS: PHENYLEPHRINE 100 MG in DEXT 5% WATER 240 ML IV PRN (01:41)
[2021-03-08] MEDS: DEXT 5%/0.45% NACL 1000ML 1,000 ML IV SCH (02:38)
[2021-03-08 05:58] LABS: CHLORIDE 116 mEq/L (98-107)
[2021-03-08] MEDS: INSULIN LISPRO 100 UNITS/ML SUBCUT SCH ×4 (06:00→17:27)
[2021-03-08 06:11] LABS: PHOSPHORUS 2.2 mg/dL (2.5-4.9)
[2021-03-08] MEDS: ONDANSETRON HCL 4MG/2ML INJ IV PRN (07:59)
[2021-03-08] MEDS ORDERED: FUROSEMIDE 40MG/4ML VIAL IVP NR (08:30)
[2021-03-08] MEDS ORDERED: POTASSIUM CHLORIDE 20MEQ TABLET SR PO NR (08:30)
[2021-03-08] MEDS: IPRATROPIUM/ALBUTEROL 0.5-3(2.5)MG/3ML NEB HHN SCH ×3 (08:34→20:22)
[2021-03-08] MEDS: PANTOPRAZOLE SODIUM 40 MG/VIAL IV SCH (08:52)
[2021-03-08] MEDS: THIAMINE HCL 100MG TABLET PO SCH (08:53)
[2021-03-08] MEDS: FOLIC ACID/VITAMIN B COMP W-C TABLET PO SCH (08:53)
[2021-03-08] MEDS: LACTOBACILLUS GG CAPSULE PO SCH (08:53)
[2021-03-08] MEDS: FLUDROCORTISONE ACETATE 0.1MG TABLET PO SCH (08:53)
[2021-03-08] MEDS: FOLIC ACID 1MG TABLET PO SCH (08:53)
[2021-03-08] MEDS: MIDODRINE HCL 5MG TABLET PO SCH ×3 (08:53→16:58)
[2021-03-08] MEDS ORDERED: POTASSIUM PHOS,M-BASIC-D-BASIC 20 MMOL in DEXT 5% WATER 243.3333 ML IV NR (11:00)
[2021-03-08] MEDS: DOBUTAMINE 250MG PREMIX 250 ML IV SCH (16:16)
[2021-03-09] VITALS (97 sets, daily range): BP systolic 70–121; BP diastolic 37–81
[2021-03-09 05:21] LABS: BASOPHILS % 0.9 % (0.0-2.0); EOSINOPHILS % 1.1 % (0.0-5.0); HEMATOCRIT. 23.8 % (42.0-52.0); LYMPHOCYTES % 23.3 % (20.0-50.0); MEAN CORPUSCULAR HEMOGLOBIN 34.5 pg (28.0-32.0); MEAN CORPUSCULAR VOLUME 102.7 fL (80.0-94.0); MEAN PLATELET VOLUME 7.6 fl (7.4-10.4); MONOCYTES % 10.3 % (2.0-8.0); NEUTROPHILS % 64.4 % (40.0-76.0); PLATELET 178 x1000/uL (130-400); RED BLOOD CELL COUNT 2.32 mill/uL (4.7-6.1); RED CELL DISTRIBUTION WIDTH 21.9 % (11.6-14.6)
[2021-03-09] MEDS: INSULIN LISPRO 100 UNITS/ML SUBCUT SCH ×4 (06:00→17:55)
[2021-03-09] MEDS: BLOOD SUGAR DIAGNOSTIC STRIP TEST SCH ×4 (06:00→17:55)
[2021-03-09] MEDS ORDERED: POTASSIUM CHLORIDE 20MEQ/PACKET PO SCH (06:00)
[2021-03-09] MEDS ORDERED: MAGNESIUM 2 G PREMIX 50 ML IV SCH (07:00)
[2021-03-09] MEDS: IPRATROPIUM/ALBUTEROL 0.5-3(2.5)MG/3ML NEB HHN SCH ×3 (08:17→20:20)
[2021-03-09] MEDS: FOLIC ACID/VITAMIN B COMP W-C TABLET PO SCH (08:31)
[2021-03-09] MEDS: FOLIC ACID 1MG TABLET PO SCH (08:31)
[2021-03-09] MEDS: FLUDROCORTISONE ACETATE 0.1MG TABLET PO SCH (08:32)
[2021-03-09] MEDS: LACTOBACILLUS GG CAPSULE PO SCH (08:32)
[2021-03-09] MEDS: THIAMINE HCL 100MG TABLET PO SCH (08:32)
[2021-03-09] MEDS: MIDODRINE HCL 5MG TABLET PO SCH ×3 (08:32→17:07)
[2021-03-09] MEDS: PANTOPRAZOLE SODIUM 40 MG/VIAL IV SCH (08:32)
[2021-03-09] MEDS: DOBUTAMINE 250MG PREMIX 250 ML IV SCH (11:35)
[2021-03-09] MEDS: PHENYLEPHRINE 100 MG in DEXT 5% WATER 240 ML IV PRN (17:07)
[2021-03-10] VITALS (97 sets, daily range): BP systolic 72–139; BP diastolic 21–105
[2021-03-10] MEDS: BLOOD SUGAR DIAGNOSTIC STRIP TEST SCH ×4 (00:48→18:46)
[2021-03-10] MEDS: IPRATROPIUM/ALBUTEROL 0.5-3(2.5)MG/3ML NEB HHN SCH ×2 (00:52→08:52)
[2021-03-10] MEDS: DOBUTAMINE 250MG PREMIX 250 ML IV SCH ×2 (03:41→22:15)
[2021-03-10] MEDS: PHENYLEPHRINE 100 MG in DEXT 5% WATER 240 ML IV PRN (05:05)
[2021-03-10] MEDS: ONDANSETRON HCL 4MG/2ML INJ IV PRN (05:05)
[2021-03-10 05:20] LABS: BASOPHILS % 1.1 % (0.0-2.0); EOSINOPHILS % 1.3 % (0.0-5.0); HEMATOCRIT. 23.8 % (42.0-52.0); HEMOGLOBIN. 8.2 g/dL (14.0-18.0); LYMPHOCYTES % 21.1 % (20.0-50.0); MEAN CORPUSCULAR HEMOGLOBIN 34.7 pg (28.0-32.0); MEAN CORPUSCULAR VOLUME 100.9 fL (80.0-94.0); MEAN PLATELET VOLUME 7.6 fl (7.4-10.4); MONOCYTES % 12.7 % (2.0-8.0); NEUTROPHILS % 63.8 % (40.0-76.0); PLATELET 270 x1000/uL (130-400); RED BLOOD CELL COUNT 2.36 mill/uL (4.7-6.1); RED CELL DISTRIBUTION WIDTH 21.5 % (11.6-14.6)
[2021-03-10] MEDS: INSULIN LISPRO 100 UNITS/ML SUBCUT SCH ×4 (05:34→18:00)
[2021-03-10 05:35] LABS: PHOSPHORUS 2.4 mg/dL (2.5-4.9)
[2021-03-10] MEDS: PANTOPRAZOLE SODIUM 40 MG/VIAL IV SCH (08:45)
[2021-03-10] MEDS: THIAMINE HCL 100MG TABLET PO SCH (08:45)
[2021-03-10] MEDS: MIDODRINE HCL 5MG TABLET PO SCH ×3 (08:46→18:45)
[2021-03-10] MEDS: FOLIC ACID 1MG TABLET PO SCH (08:47)
[2021-03-10] MEDS: LACTOBACILLUS GG CAPSULE PO SCH (08:47)
[2021-03-10] MEDS: FLUDROCORTISONE ACETATE 0.1MG TABLET PO SCH (08:47)
[2021-03-10] MEDS: FOLIC ACID/VITAMIN B COMP W-C TABLET PO SCH (08:47)
[2021-03-10] MEDS ORDERED: POTASSIUM PHOS,M-BASIC-D-BASIC 20 MMOL in DEXT 5% WATER 243.3333 ML IV SCH (10:00)
[2021-03-10] MEDS: DIGOXIN 125MCG TABLET PO SCH (18:46)
[2021-03-11] VITALS (101 sets, daily range): BP systolic 44–132; BP diastolic 14–81
[2021-03-11 05:49] LABS: BASOPHILS % 0.7 % (0.0-2.0); EOSINOPHILS % 1.3 % (0.0-5.0); HEMATOCRIT. 23.7 % (42.0-52.0); LYMPHOCYTES % 25.7 % (20.0-50.0); MEAN CORPUSCULAR HEMOGLOBIN 34.7 pg (28.0-32.0); MEAN CORPUSCULAR VOLUME 102.7 fL (80.0-94.0); MEAN PLATELET VOLUME 7.8 fl (7.4-10.4); MONOCYTES % 12.6 % (2.0-8.0); NEUTROPHILS % 59.7 % (40.0-76.0); PLATELET 315 x1000/uL (130-400); RED BLOOD CELL COUNT 2.31 mill/uL (4.7-6.1); RED CELL DISTRIBUTION WIDTH 21.5 % (11.6-14.6)
[2021-03-11 05:59] LABS: PHOSPHORUS 3.3 mg/dL (2.5-4.9)
[2021-03-11] MEDS: INSULIN LISPRO 100 UNITS/ML SUBCUT SCH ×4 (06:00→18:00)
[2021-03-11] MEDS: BLOOD SUGAR DIAGNOSTIC STRIP TEST SCH ×4 (06:06→18:51)
[2021-03-11] MEDS ORDERED: POTASSIUM CHLORIDE 20MEQ/PACKET PO NR (08:15)
[2021-03-11] MEDS: PANTOPRAZOLE SODIUM 40 MG/VIAL IV SCH (09:31)
[2021-03-11] MEDS: FOLIC ACID/VITAMIN B COMP W-C TABLET PO SCH (09:31)
[2021-03-11] MEDS: LACTOBACILLUS GG CAPSULE PO SCH (09:31)
[2021-03-11] MEDS: FLUDROCORTISONE ACETATE 0.1MG TABLET PO SCH (09:31)
[2021-03-11] MEDS: FOLIC ACID 1MG TABLET PO SCH (09:33)
[2021-03-11] MEDS: THIAMINE HCL 100MG TABLET PO SCH (09:33)
[2021-03-11] MEDS: MIDODRINE HCL 5MG TABLET PO SCH ×3 (09:33→18:51)
[2021-03-11] MEDS: SODIUM CHLORIDE 0.45% 1,000 ML IV SCH (13:19)
[2021-03-11] MEDS: DIGOXIN 125MCG TABLET PO SCH (13:20)
[2021-03-11] MEDS: DOBUTAMINE 250MG PREMIX 250 ML IV SCH (13:20)
[2021-03-12] VITALS (98 sets, daily range): BP systolic 29–136; BP diastolic 14–104
[2021-03-12] MEDS: BLOOD SUGAR DIAGNOSTIC STRIP TEST SCH ×4 (05:34→18:04)
[2021-03-12] MEDS: INSULIN LISPRO 100 UNITS/ML SUBCUT SCH ×4 (05:35→18:00)
[2021-03-12] MEDS: SODIUM CHLORIDE 0.45% 1,000 ML IV SCH ×3 (05:37→18:06)
[2021-03-12] MEDS: PHENYLEPHRINE 100 MG in DEXT 5% WATER 240 ML IV PRN (05:38)
[2021-03-12] MEDS: ACETAMINOPHEN 325MG TABLET PO PRN (05:50)
[2021-03-12 06:21] LABS: BASOPHILS % 1.2 % (0.0-2.0); EOSINOPHILS % 1.7 % (0.0-5.0); HEMATOCRIT. 24.5 % (42.0-52.0); HEMOGLOBIN. 8.4 g/dL (14.0-18.0); LYMPHOCYTES % 26.9 % (20.0-50.0); MEAN CORPUSCULAR HEMOGLOBIN 34.6 pg (28.0-32.0); MEAN CORPUSCULAR VOLUME 101.1 fL (80.0-94.0); MEAN PLATELET VOLUME 7.9 fl (7.4-10.4); MONOCYTES % 12.7 % (2.0-8.0); NEUTROPHILS % 57.5 % (40.0-76.0); PLATELET 321 x1000/uL (130-400); RED BLOOD CELL COUNT 2.42 mill/uL (4.7-6.1); RED CELL DISTRIBUTION WIDTH 21.6 % (11.6-14.6)
[2021-03-12 07:25] LABS: CHLORIDE 113 mEq/L (98-107)
[2021-03-12] MEDS: FOLIC ACID/VITAMIN B COMP W-C TABLET PO SCH (10:08)
[2021-03-12] MEDS: MIDODRINE HCL 5MG TABLET PO SCH ×3 (10:08→18:05)
[2021-03-12] MEDS: FLUDROCORTISONE ACETATE 0.1MG TABLET PO SCH (10:08)
[2021-03-12] MEDS: FOLIC ACID 1MG TABLET PO SCH (10:09)
[2021-03-12] MEDS: THIAMINE HCL 100MG TABLET PO SCH (10:09)
[2021-03-12] MEDS: LACTOBACILLUS GG CAPSULE PO SCH (10:09)
[2021-03-12] MEDS: PANTOPRAZOLE SODIUM 40 MG/VIAL IV SCH (10:09)
[2021-03-12] MEDS: DOBUTAMINE 250MG PREMIX 250 ML IV SCH (10:59)
[2021-03-12] MEDS ORDERED: SODIUM CHLORIDE 0.9% 500 ML IV NR (12:15)
[2021-03-12] MEDS: SODIUM CHLORIDE 1000MG TABLET PO SCH ×2 (12:20→18:04)
[2021-03-12] MEDS: ONDANSETRON HCL 4MG/2ML INJ IV PRN (15:49)
[2021-03-12] MEDS: DIGOXIN 125MCG TABLET PO SCH (18:00)
[2021-03-13] VITALS (43 sets, daily range): BP systolic 72–132; BP diastolic 50–86
[2021-03-13] MEDS: SODIUM CHLORIDE 0.45% 1,000 ML IV SCH ×3 (05:12→23:55)
[2021-03-13] MEDS: BLOOD SUGAR DIAGNOSTIC STRIP TEST SCH ×5 (06:00→23:55)
[2021-03-13] MEDS: INSULIN LISPRO 100 UNITS/ML SUBCUT SCH ×4 (06:00→18:00)
[2021-03-13 06:54] LABS: CHLORIDE 114 mEq/L (98-107)
[2021-03-13] MEDS ORDERED: LORAZEPAM 0.5MG TABLET PO PRN (08:30)
[2021-03-13] MEDS: FOLIC ACID/VITAMIN B COMP W-C TABLET PO SCH (09:00)
[2021-03-13] MEDS: THIAMINE HCL 100MG TABLET PO SCH (09:09)
[2021-03-13] MEDS: MIDODRINE HCL 5MG TABLET PO SCH ×3 (09:10→18:37)
[2021-03-13] MEDS: SODIUM CHLORIDE 1000MG TABLET PO SCH ×2 (09:11→18:37)
[2021-03-13] MEDS: LACTOBACILLUS GG CAPSULE PO SCH (09:11)
[2021-03-13] MEDS: FLUDROCORTISONE ACETATE 0.1MG TABLET PO SCH (09:11)
[2021-03-13] MEDS: FOLIC ACID 1MG TABLET PO SCH (09:11)
[2021-03-13] MEDS: PANTOPRAZOLE SODIUM 40 MG/VIAL IV SCH (09:12)
[2021-03-13] MEDS ORDERED: LORAZEPAM 0.5MG TABLET PO SCH (11:30)
[2021-03-13] MEDS: RISPERIDONE 0.5MG TABLET PO SCH (11:50)
[2021-03-13] MEDS: LORAZEPAM 0.5MG TABLET PO PRN ×2 (12:43→12:44)
[2021-03-13] MEDS ORDERED: MAGNESIUM 2 G PREMIX 50 ML IV SCH (15:00)
[2021-03-13] MEDS: DIGOXIN 125MCG TABLET PO SCH (18:37)
[2021-03-14] VITALS: BP 110/71
[2021-03-14 04:00] VITALS: BP 94/59
[2021-03-14] MEDS: INSULIN LISPRO 100 UNITS/ML SUBCUT SCH ×4 (06:00→17:17)
[2021-03-14] MEDS: BLOOD SUGAR DIAGNOSTIC STRIP TEST SCH ×3 (06:33→17:17)
[2021-03-14 07:47] LABS: BASOPHILS % 0.9 % (0.0-2.0); CHLORIDE 114 mEq/L (98-107); EOSINOPHILS % 2.4 % (0.0-5.0); HEMATOCRIT. 24.5 % (42.0-52.0); HEMOGLOBIN. 8.2 g/dL (14.0-18.0); LYMPHOCYTES % 26.1 % (20.0-50.0); MEAN CORPUSCULAR VOLUME 101.8 fL (80.0-94.0); MEAN PLATELET VOLUME 7.4 fl (7.4-10.4); MONOCYTES % 11.3 % (2.0-8.0); NEUTROPHILS % 59.3 % (40.0-76.0); PLATELET 334 x1000/uL (130-400); RED BLOOD CELL COUNT 2.41 mill/uL (4.7-6.1); RED CELL DISTRIBUTION WIDTH 20.7 % (11.6-14.6)
[2021-03-14 07:55] LABS: PHOSPHORUS 2.8 mg/dL (2.5-4.9)
[2021-03-14 08:00] VITALS: BP 102/68
[2021-03-14] MEDS ORDERED: POTASSIUM CHLORIDE 20MEQ TABLET SR PO SCH (08:00)
[2021-03-14] MEDS: SODIUM CHLORIDE 1000MG TABLET PO SCH ×2 (09:35→17:54)
[2021-03-14] MEDS: FOLIC ACID/VITAMIN B COMP W-C TABLET PO SCH (09:35)
[2021-03-14] MEDS: THIAMINE HCL 100MG TABLET PO SCH (09:36)
[2021-03-14] MEDS: RISPERIDONE 0.5MG TABLET PO SCH (09:36)
[2021-03-14] MEDS: FOLIC ACID 1MG TABLET PO SCH (09:36)
[2021-03-14] MEDS: PANTOPRAZOLE SODIUM 40 MG/VIAL IV SCH (09:37)
[2021-03-14] MEDS: MIDODRINE HCL 5MG TABLET PO SCH ×3 (09:37→17:55)
[2021-03-14] MEDS: SODIUM CHLORIDE 0.45% 1,000 ML IV SCH ×2 (10:08→21:13)
[2021-03-14] MEDS: FLUDROCORTISONE ACETATE 0.1MG TABLET PO SCH (11:17)
[2021-03-14] MEDS: LACTOBACILLUS GG CAPSULE PO SCH (11:17)
[2021-03-14] MEDS: ASPIRIN 81MG EC TABLET PO SCH (11:18)
[2021-03-14 12:00] VITALS: BP 102/58
[2021-03-14 16:00] VITALS: BP 96/50
[2021-03-14] MEDS: RISPERIDONE 1MG TABLET PO SCH (17:54)
[2021-03-14] MEDS: DIGOXIN 125MCG TABLET PO SCH (17:55)
[2021-03-14 20:00] VITALS: BP 90/48
[2021-03-15] VITALS (7 sets, daily range): BP systolic 93–108; BP diastolic 51–70
[2021-03-15] MEDS: BLOOD SUGAR DIAGNOSTIC STRIP TEST SCH ×4 (01:00→16:53)
[2021-03-15] MEDS: INSULIN LISPRO 100 UNITS/ML SUBCUT SCH ×4 (01:00→16:53)
[2021-03-15] MEDS: LORAZEPAM 0.5MG TABLET PO PRN (02:49)
[2021-03-15] MEDS: SODIUM CHLORIDE 0.45% 1,000 ML IV SCH ×2 (06:08→16:00)
[2021-03-15 07:45] LABS: BASOPHILS % 1.1 % (0.0-2.0); EOSINOPHILS % 1.8 % (0.0-5.0); HEMATOCRIT. 24.5 % (42.0-52.0); HEMOGLOBIN. 8.2 g/dL (14.0-18.0); LYMPHOCYTES % 29.6 % (20.0-50.0); MEAN CORPUSCULAR HEMOGLOBIN 34.6 pg (28.0-32.0); MEAN PLATELET VOLUME 7.6 fl (7.4-10.4); MONOCYTES % 12.3 % (2.0-8.0); NEUTROPHILS % 55.2 % (40.0-76.0); PLATELET 267 x1000/uL (130-400); RED BLOOD CELL COUNT 2.38 mill/uL (4.7-6.1); RED CELL DISTRIBUTION WIDTH 21.3 % (11.6-14.6)
[2021-03-15] MEDS: LACTOBACILLUS GG CAPSULE PO SCH (08:48)
[2021-03-15] MEDS: THIAMINE HCL 100MG TABLET PO SCH (08:48)
[2021-03-15] MEDS: PANTOPRAZOLE SODIUM 40 MG/VIAL IV SCH (08:48)
[2021-03-15] MEDS: FOLIC ACID 1MG TABLET PO SCH (08:48)
[2021-03-15] MEDS: FOLIC ACID/VITAMIN B COMP W-C TABLET PO SCH (08:48)
[2021-03-15] MEDS: ASPIRIN 81MG EC TABLET PO SCH (08:48)
[2021-03-15] MEDS: MIDODRINE HCL 5MG TABLET PO SCH ×3 (08:48→16:52)
[2021-03-15] MEDS: SODIUM CHLORIDE 1000MG TABLET PO SCH ×2 (08:48→16:53)
[2021-03-15] MEDS: RISPERIDONE 1MG TABLET PO SCH ×2 (08:48→16:53)
[2021-03-15] MEDS: FLUDROCORTISONE ACETATE 0.1MG TABLET PO SCH (08:48)
[2021-03-15] MEDS ORDERED: POTASSIUM CHLORIDE 20MEQ TABLET SR PO ONE (12:30)
[2021-03-15] MEDS ORDERED: POTASSIUM CHLORIDE 20MEQ TABLET SR PO SCH (13:00)
[2021-03-15 14:39] LABS: PHOSPHORUS 2.2 mg/dL (2.5-4.9)
[2021-03-15] MEDS: DIGOXIN 125MCG TABLET PO SCH (16:52)
== END 2021-03-15 22:49 | DRG 870 ==
LOC: ER 09:19 → EDBEDREQTM 10:53 → EDBEDREQSVC 10:53 → EDBEDREQ 10:53 → MICUNO 11:37 → ENRESERV 14:22 → CANBEDREQ 18:39 → 5EST 03-13 07:30 → 7EST 03-13 16:20
PROVIDERS: ADMIT Internal Medicine; ATTEND Internal Medicine
PROC: 5A1955Z Respiratory Ventilation, Greater than 96 Consecutive Hours (ICD-10-PCS; principal; 2021-02-20)
PROC: 02HV33Z Insertion of Infusion Device into Superior Vena Cava, Percutaneous Approach (ICD-10-PCS; 2021-02-20)
PROC: B548ZZA Ultrasonography of Superior Vena Cava, Guidance (ICD-10-PCS; 2021-02-20)
PROC: 0BH17EZ Insertion of Endotracheal Airway into Trachea, Via Natural or Artificial Opening (ICD-10-PCS; 2021-02-20)
PROC: 30233N1 Transfusion of Nonautologous Red Blood Cells into Peripheral Vein, Percutaneous Approach (ICD-10-PCS; 2021-02-28)
DX: A41.9 Sepsis, unspecified organism (principal); I21.4 Non-ST elevation (NSTEMI) myocardial infarction; J96.00 Acute respiratory failure, unspecified whether with hypoxia or hypercapnia; N17.0 Acute kidney failure with tubular necrosis; R65.21 Severe sepsis with septic shock; G93.41 Metabolic encephalopathy; E43 Unspecified severe protein-calorie malnutrition; R57.0 Cardiogenic shock; J18.9 Pneumonia, unspecified organism; N13.6 Pyonephrosis; E87.2 Acidosis; E87.0 Hyperosmolality and hypernatremia; N18.4 Chronic kidney disease, stage 4 (severe); J44.0 Chronic obstructive pulmonary disease with (acute) lower respiratory infection; I47.1 Supraventricular tachycardia; Z68.1 Body mass index [BMI] 19.9 or less, adult; I50.22 Chronic systolic (congestive) heart failure; R73.9 Hyperglycemia, unspecified; E83.42 Hypomagnesemia; R19.7 Diarrhea, unspecified; E16.2 Hypoglycemia, unspecified; I48.91 Unspecified atrial fibrillation; E87.8 Other disorders of electrolyte and fluid balance, not elsewhere classified; E87.6 Hypokalemia; E83.39 Other disorders of phosphorus metabolism; I44.0 Atrioventricular block, first degree; Z20.822 Contact with and (suspected) exposure to COVID-19; E86.9 Volume depletion, unspecified; F03.90 Unspecified dementia, unspecified severity, without behavioral disturbance, psychotic disturbance, mood disturbance, and anxiety; R62.7 Adult failure to thrive; D69.6 Thrombocytopenia, unspecified; R23.4 Changes in skin texture; I27.29 Other secondary pulmonary hypertension; R53.81 Other malaise; D53.9 Nutritional anemia, unspecified; Z85.038 Personal history of other malignant neoplasm of large intestine; Z90.89 Acquired absence of other organs; Z90.79 Acquired absence of other genital organ(s); Z90.49 Acquired absence of other specified parts of digestive tract; Z78.1 Physical restraint status
CPT/HCPCS: 36415; 36600; 71045; 74018; 76770; 76937; 80048; 80053; 80061; 80162; 80305; 81003; 82010; 82040; 82150; 82270; 82375; 82378; 82436; 82533; 82550; 82570; 82575; 82607; 82728; 82746; 82805; 82962; 83036; 83540; 83550; 83605; 83615; 83735; 83880; 83930; 83935; 84100; 84132; 84133; 84134; 84145; 84478; 84484; 85025; 85044; 85379; 86038; 86850; 86900; 86920; 87070; 87426; 92610; 93005; 93306; 94002; 94003; 94640; 97162; 97166; 97530; 99291; A6261; C1725; C9113; J0282; J0330; J1160; J1250; J1265; J1815; J1940; J2020; J2060; J2185; J2370; J2405; J2543; J2704; J3370; J3475; J3480; J3490; J7030; J7040; J7042; J7050; J7060; J7070; P9016; A4315